=== PATIENT | female | born 1935 | race Caucasian/White ===

== ENCOUNTER → 2018-06-03 | Outpatient (CLI) | payer OTHER ==
[~2018-06-03] MED LIST: IBUPROFEN 400400 M2 PO; TRAMADOL 50 MG50 MG PO
== END ==
LOC: RAD 11:53
DX: J45.909 Unspecified asthma, uncomplicated (principal); M41.86 Other forms of scoliosis, lumbar region

== ENCOUNTER → 2018-12-14 | Outpatient (CLI) | payer OTHER | LOC: ULTRA 09:22 | DX: R79.89 Other specified abnormal findings of blood chemistry (principal) ==

== ENCOUNTER → 2019-02-05 | Outpatient (CLI) | payer OTHER ==
[2019-02-05 10:03] LABS: HEMATOCRIT 37.9 % (37.0-47.0); HEMOGLOBIN 12.7 gm/dL (12.0-15.0); MCH 32.1 pg (26.0-34.0); MCHC 33.4 g/dL (28.0-37.0); RBC 3.95 mil/uL (4.20-5.00); RDW 14.1 % (10.5-14.5)
[2019-02-05 10:07] LABS: CALCIUM 9.3 mg/dL (8.5-10.1); CREATININE 0.6 mg/dL (0.6-1.0); POTASSIUM 3.5 mmol/L (3.5-5.1)
[2019-02-05 10:11] LABS: INR 1.1; PROTIME 11.1 Seconds (9.3-11.4)
[2019-02-05 10:50] VITALS: BP 168/72
--- NOTE | 2019-02-09 14:06 | PATH ---
[facility] [address] [place] [address] PATHOLOGY RPT PROCEDURE Name: JYOTI LOU Room #: REG [facility] Pawel.#: [id number] Admission: 02/05/19 Date of : 35 Discharge: Report #: [id number] Path Case #: [id number] [facility] Accession Number: [id number] . 01 Material submitted: . liver - LIVER BIOPSY . 01 Clinical history: . Elevated LFTs LL liver 3 cores . 02 Diagnosis: Liver, left lobe, needle core biopsy: - Moderate chronic active hepatitis with lymphocytic interface activity, ductular proliferation and granulomatous inflammation, see comment. - Focal suppurative cholangitis, cannot exclude a large bile duct obstruction. LBQ 02/08/2019 1734 Local . 02 Comment: Examination shows florid bile duct lesions, markedly expanded portal tracts with moderate interface activity comprised of sheets of plasma cells interspersed amongst a dense lymphocytic infiltrate. Occasional lymphoid aggregates are noted. Bile ductular proliferation is present with loss of few small bile ducts. Focal hepatocyte archana formation is identified as well. Scattered portal tracts show epithelioid histiocytes, consistent with granulomatous inflammation. Sclerosing bile duct lesions are not identified. There is no steatosis present. Well-formed Jazmyne-Denk bodies are not identified. There is no evidence of nodular regenerative changes or dysplasia present within the hepatocytes. Overall features are suggestive of primary biliary cholangitis, Scheuer stage 2 (ductular proliferation with periportal expansion and inflammation) as well as Alfredo stage 2 (periportal hepatitis). . Numerous properly controlled special stains are performed on blocks A1, A2 and A3. They are interpreted as follows: . 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 AFB - Negative for mycobacteria GMS fungal - No definite fungal elements identified [address] [address] PATHOLOGY RPT PROCEDURE Name: DASHAJYOTI S Room #: REG [facility].#: [id number] Admission: 02/05/19 Date of : 35 Discharge: Report #: [id number] Path Case #: [id number] Copper stain - Scattered rare periportal hepatocytes positive consistent with focal minimal cholestasis . The differential diagnosis includes a combined autoimmune cholangitis overlapped with primary biliary cholangitis, a medication/drug induced liver injury or other causes of bile duct injury. The presence of focal suppurative cholangitis raises concern for a large bile duct obstruction. It is noted from the ultrasound abdomen study that the common bile duct and pancreatic duct were noted at the upper limits with no obstructing mass lesion or stone present. It is noted that the Hepatitis C PCR was negative. Please note prominent lymphoid aggregates as well as the dense portal chronic inflammation may be noted in a background of chronic Hepatitis C as well. Clinical correlation is suggested. . These findings are conveyed to Dr. Juan Alberto Ontiveros in the evening of 02/08/19. (IUV/db; 02/08/2019) . 02 Electronically signed: . Kimberley Harmon MD, Pathologist NPI- [id number] . 01 Gross description: . The specimen is received in formalin, labeled "Porum, Jyoti, liver BX", are three needle cores and its fragments measuring 1.4 cm, 2.0 cm and 1.7 cm in length and up to 0.1 cm in diameter. The specimen is entirely submitted in A1-A3. ([facility]; 02/05/2019) [facility] 02/05/2019 [facility] Local . 02 Pathologist provided ICD-10: K73.9, K83.09, K75.3 . 02 CPT . 500753, 963967, 384420, 329163, 390974, 705718, 907258, 915876, 073863, 351117, 418312, 529563, 790047, 216939, 551785, 452399, 484545, 602893, 557083 Specimen Comment: A courtesy copy of this report has been sent to Specimen Comment: [phone], . Specimen Comment: Report sent to / DR FERNÁNDEZ Performed at: [address], [place] [id number] MD Ryan Rosales MD Phone: [phone] Performed at: [address] [id number] MD Kimberley Harmon MD Phone: [phone]
== END | disposition home or self-care (01) ==
LOC: ULTRA 09:29
PROVIDERS: Specialist
DX: R94.5 Abnormal results of liver function studies (principal); K73.9 Chronic hepatitis, unspecified; K83.09 Other cholangitis; Z98.890 Other specified postprocedural states

== ENCOUNTER → 2019-05-19 | Outpatient (CLI) | payer OTHER | LOC: SJCVC 13:24 | DX: I10 Essential (primary) hypertension (principal); I34.0 Nonrheumatic mitral (valve) insufficiency; R42 Dizziness and giddiness; R60.9 Edema, unspecified; K21.9 Gastro-esophageal reflux disease without esophagitis; Z87.891 Personal history of nicotine dependence; Z79.899 Other long term (current) drug therapy ==

== ENCOUNTER → 2020-05-19 | Outpatient (CLI) | payer OTHER, MEDICARE | LOC: SJCVCIMAG 08:08 | PROVIDERS: ATTEND Internal Medicine Cardiovascular Disease | DX: I08.1 Rheumatic disorders of both mitral and tricuspid valves (principal); I11.9 Hypertensive heart disease without heart failure; R42 Dizziness and giddiness; R60.9 Edema, unspecified; K21.9 Gastro-esophageal reflux disease without esophagitis; E55.9 Vitamin D deficiency, unspecified; Z90.710 Acquired absence of both cervix and uterus; Z98.890 Other specified postprocedural states; Z79.899 Other long term (current) drug therapy; Z87.891 Personal history of nicotine dependence; Z82.49 Family history of ischemic heart disease and other diseases of the circulatory system ==